=== PATIENT | female | born 1970 | race Caucasian/White ===

== ENCOUNTER → 2020-03-19 | Day surgery (SDC) | payer OTHER, MEDICAID ==
[2020-03-13 17:15] LABS: BASOPHIL % 0.5 % (0-2); PLATELET COUNT 186 x10^3mcL (130-400)
[2020-03-13 17:35] LABS: ALBUMIN 3.5 g/dL (3.4-5.0); BILIRUBIN TOTAL 0.61 mg/dL (0.20-1.00); CALCIUM 9.1 mg/dL (8.5-10.1); CARBON DIOXIDE 27.6 mmol/L (21-32); CREATININE SERUM 1.1 mg/dL (0.6-1.0); POTASSIUM SERUM 3.6 mmol/L (3.5-5.1)
[2020-03-13 17:40] LABS: TOTAL PROTEIN, SERUM 8.8 g/dL (6.4-8.2)
--- NOTE | 2020-03-16 08:45 | NUR ---
LAB RESULTS FAXED TO DR POONAM CROCKER'S OFFICE AND COPIES TAKEN TO OR FOR ANESTHESIA TO REVIEW.
--- NOTE | 2020-03-17 16:06 | NUR ---
DR. BURGER-ANESTHESIA REVIEWED THE LAB RESULT. NO FURTHER ORDER WAS RECOMMENDED.
[~2020-03-19] VITALS: Ht 160 cm; Wt 87.1 kg
[2020-03-19 09:38] VITALS: BP 153/85
[2020-03-19 17:34] VITALS: BP 110/60
== END | disposition home or self-care (01) ==
LOC: OR 03-13 16:05 → DS 08:56 → OR 12:00 → DS 12:00
PROVIDERS: ATTEND Surgery
DX: K81.1 Chronic cholecystitis (principal); Z11.59 Encounter for screening for other viral diseases
CPT/HCPCS: J0690; J1170; J2175; J2250; J2405; J2704; J3010; J3490; J7030; J7120; U0003-CS